=== PATIENT | male | born 1970 | race Caucasian/White ===

== ENCOUNTER → 2023-09-13 07:46 | Outpatient (CLI) | payer OTHER, SELFPAY ==
--- NOTE | 2023-09-13 07:49 | DI.US.S_ITS ---
PROCEDURE: US ABDOMEN LIMITED INDICATIONS: MASS OF SOFT TISSUE OF SHOULDER/LIPOMA TECHNIQUE: Real-time focused scanning was performed of the scapular region, with image documentation. COMPARISON: None. FINDINGS: Targeted ultrasound of the scapular region demonstrates in capsulated, fat containing mass measuring 5.3 x 0.8 x 4.8 cm. No suspicious soft tissue component. IMPRESSION: Superficial lipoma overlying the scapula. Dictated by: Thomas Dasilva M.D. on 09/13/2023 at 9:56 Approved by: Thomas Dasilva M.D. on 09/13/2023 at 9:56
== END ==
PROVIDERS: Referring Provider Physician Assistant; Visit Provider Physician Assistant
DX: D17.1 Benign lipomatous neoplasm of skin and subcutaneous tissue of trunk (principal); M79.89 Other specified soft tissue disorders
CPT/HCPCS: 76705